=== PATIENT | female | born 1990 ===

== ENCOUNTER 2021-12-23 04:20 | Day surgery (SDC) | payer BC ==
[2021-12-23] MEDS ORDERED: LIDOCAINE HCL 1%, 10 MG/ML (20ML VIAL) ONE (12:09)
[2021-12-23] MEDS ORDERED: PROPOFOL 20 ML ONE ×2 (12:29)
[2021-12-23] MEDS ORDERED: MIDAZOLAM HCL 2 MG/2 ML SINGLE DOSE VIAL ONE (12:29)
[2021-12-23] MEDS ORDERED: ACETAMINOPHEN INJECTION 100 ML IVPB ONE (12:35)
[2021-12-23] MEDS ORDERED: LIDOCAINE HCL 1%, 10 MG/ML (20ML VIAL) INF ONE (12:47)
[2021-12-23 14:39] VITALS: TEMP 97.7
[2021-12-23] MEDS ORDERED: IBUPROFEN 600 MG TABLET (FP) PO ONE ×3 (15:06→16:02)
[2021-12-23 15:22] VITALS: BP 127/77; PULSE 77
== END 2021-12-23 15:20 | disposition home or self-care (01) ==
LOC: JASU-SURG 04:20
PROVIDERS: ATTEND Surgery
PROC: 0HBU0ZX Excision of Left Breast, Open Approach, Diagnostic (ICD-10-PCS; principal; 2021-12-23 13:00)
DX: N60.32 Fibrosclerosis of left breast (principal)
CPT/HCPCS: 81025; 88307-TC; 94760